=== PATIENT | male | born 1965 | race Caucasian/White ===

== ENCOUNTER 2025-02-25 21:49 | Emergency (ER) | payer BC ==
[~2025-02-25] VITALS: Ht 177.8 cm; Wt 99.8 kg
[2025-02-25] MEDS ORDERED: JARDIANCE10 MG PO (22:06)
[2025-02-25] MEDS ORDERED: ATORVASTATIN CA20 M1 PO (22:06)
[2025-02-25] MEDS ORDERED: WARFARIN SODIUM2 MG PO (22:07)
[2025-02-25] MEDS ORDERED: METOPROLOL SUCC50 M1 PO (22:07)
[2025-02-25] MEDS ORDERED: RAMIPRIL10 MG PO (22:07)
[2025-02-25] MEDS ORDERED: WARFARIN SODIUM6 MG PO (22:07)
[2025-02-25] MEDS ORDERED: OMEPRAZOLE MAGN20 MG PO (22:07)
[2025-02-25] MEDS ORDERED: SOTALOL80 MG PO (22:08)
[2025-02-25] MEDS ORDERED: ALPRAZOLAM0.5 M3 PO (22:08)
[2025-02-25] MEDS ORDERED: ASPIRIN81 M1 PO (22:08)
[2025-02-25 22:23] LABS: BASO # 0.1 10*3/uL (0.0-0.1); BASO % 0.6 % (0.0-1.0); EOS # 0.1 10*3/uL (0.0-0.4); EOS % 0.9 % (1.0-4.0); MEAN CELL VOLUME 91.5 fl (80.0-94.0); MEAN CORPUSCULAR HGB 29.7 pg (27.0-31.0); MEAN PLATELET VOLUME 9.0 fl (9.6-12.3); MONO # 0.5 10*3/uL (0.1-1.0); MONO % 5.6 % (3.0-9.0); NEUT # 6.7 10*3/uL (2.3-7.9); NEUT % 70.0 % (47.0-73.0); NUCLEATED RED BLOOD CELL 0.0 % (0.0-0.0); NUCLEATED RED BLOOD CELL 0.0 10*3/uL (0.0-0.0); PLATELET COUNT AUTOMATED 213 10*3/uL (130-400); RED CELL DISTRI WIDTH 14.4 % (0-14.5)
[2025-02-25 22:38] LABS: ACT PARTIAL THROMBO TIME 39.3 SECONDS (20.0-32.1)
[2025-02-25 22:45] LABS: BUN 11 mg/dl (9-23); SGPT/ALT 26 U/L (5-49)
[2025-02-25] MEDS ORDERED: MAGNESIUM SULFATE 50 ML IV ONE (23:50)
[2025-02-26] MEDS ORDERED: POTASSIUM CHLORIDE 20 MEQ TAB PO ONE (00:05)
[2025-02-26] MEDS ORDERED: RAMIPRIL 10 MG CAP PO ONE (01:30)
[2025-02-26] MEDS ORDERED: WARFARIN SODIUM 6 MG TAB PO ONE (01:30)
[2025-02-26] MEDS ORDERED: WARFARIN SODIUM 2 MG TAB PO ONE (01:30)
[2025-02-26] MEDS ORDERED: ATORVASTATIN CALCIUM 20 MG TAB PO ONE (01:30)
[2025-02-26] MEDS ORDERED: ALPRAZolam 0.25 MG TAB PO ONE ×2 (01:30)
[2025-02-26] MEDS ORDERED: ACETAMINOPHEN 325 MG TAB PO ONE (02:55)
== END 2025-02-26 07:53 | disposition short-term general hospital (02) ==
LOC: ED 21:49
PROVIDERS: Emergency Medicine
DX: T82.118A Breakdown (mechanical) of other cardiac electronic device, initial encounter (principal); E87.6 Hypokalemia; E83.42 Hypomagnesemia; R79.89 Other specified abnormal findings of blood chemistry; I25.10 Atherosclerotic heart disease of native coronary artery without angina pectoris; I25.2 Old myocardial infarction; Z95.5 Presence of coronary angioplasty implant and graft; Z79.01 Long term (current) use of anticoagulants; Z79.899 Other long term (current) drug therapy; Y83.8 Other surgical procedures as the cause of abnormal reaction of the patient, or of later complication, without mention of misadventure at the time of the procedure; Y92.89 Other specified places as the place of occurrence of the external cause